=== PATIENT | female | born 1950 | race Caucasian/White ===

== ENCOUNTER → 2023-10-09 | Outpatient (CLI) | payer MEDICARE ==
--- NOTE | 2023-10-10 13:18 | CTL ---
EXAMINATION TYPE: CT Low Dose Lung DATE OF EXAM ORDERED: 10/09/2023 HISTORY: . Lung cancer screening CT DLP: 64.1 mGycm Automated exposure control for dose reduction was used. SCREENING VISIT: Initial COMPARISON: None TECHNIQUE: Low dose computed tomography scan was performed through the chest at 1 mm thick sections a nd reconstructed images in the coronal plane at [address] DIAGNOSTIC QUALITY: Satisfactory FINDINGS: LUNG NODULES: Present, detailed below: 1. There is a punctate 0.2 cm nodule peripheral right apex. Series 4 image 43. 2. There is a 0.3 cm nodule posterior left lung. Series 4 image 41. 3. There is a 0.3 cm nodule anterior right upper lobe. Series 4 image 47. 4. There is a faint 0.3 cm nodule peripheral left upper lung field. Series 4 image 51. 5. There is a faint 0.4 cm nodule posterior right upper lung field. Series 4 image 61. 6. Calcified granuloma lateral left lung base. Series 3 image 23. LUNGS: COPD: Severity: Mild. Some peribronchial thickening may be some chronic bronchitis present. Fibrosis: Severity: None Lymph nodes: None Other findings: None RIGHT PLEURAL SPACE: Effusion: None Calcification: None Thickening: None Pneumothorax: None LEFT PLEURAL SPACE: Effusion: None Calcification: None Thickening: None Pneumothorax: None HEART: Heart Size: Normal Coronary calcification: None Pericardial effusion: None OTHER FINDINGS: Upper abdomen: Normal Bony thorax: Normal Supraclavicular region: Normal Other: Ascending thoracic aorta at the main pulmonary artery is 3.4 cm. Main pulmonary artery the bif urcation is 2.2 cm. IMPRESSION: 1. Scattered small faint nodules. Follow up limited CT chest one year. FOLLOW UP CT CHEST RECOMMENDATION: Follow-up low-dose CT chest one year CT LUNG RAD: Lung-Rad 2 Benign Appearance or Behavior
== END | disposition home or self-care (01) ==
LOC: RADCTMAIN 15:15
PROVIDERS: ATTEND Family Medicine
DX: Z12.2 Encounter for screening for malignant neoplasm of respiratory organs (principal); R91.8 Other nonspecific abnormal finding of lung field; F17.210 Nicotine dependence, cigarettes, uncomplicated
CPT/HCPCS: 71271

== ENCOUNTER 2023-11-17 07:39 | Day surgery (SDC) | payer MEDICARE ==
[~2023-11-17 07:39] MED LIST: HYDROmorphone 0.5 MG/0.5 ML SYRINGE IVP PRN; MIDAZOLAM 2 MG/2 ML VIAL IV PRN
[2023-11-17] MEDS: IV FLUID CONTINUATION 1,000 ML IV ONE (08:22)
[2023-11-17] MEDS: ACETAMINOPHEN TAB 500 MG TAB PO PRN (08:45)
[2023-11-17] MEDS: SCOPOLAMINE 1 MG/72 HR PATCH TRANSDERM ONE (08:45)
[2023-11-17] MEDS: DEXAMETHASONE SOD PHOSPHATE 4 MG/ML 1 ML VIAL IV ONE (08:46)
[2023-11-17] MEDS: ONDANSETRON 4 MG/2 ML VIAL IVP ONE (08:48)
[2023-11-17] MEDS: LACTATED RINGERS 1,000 ML IV SCH (08:49)
[2023-11-17] MEDS: HEPARIN SODIUM,PORCINE 5,000 UNIT/ML 1 ML VIAL SQ STA (08:50)
[2023-11-17] MEDS: FAMOTIDINE 20 MG/2 ML VIAL IV STA (08:50)
[2023-11-17] MEDS: diphenhydrAMINE 50 MG/ML 1 ML VIAL IVP STA (08:50)
[2023-11-17] MEDS ORDERED: fentaNYL (PF) 50 MCG/ML 2 ML AMP ONE (08:57)
[2023-11-17] MEDS ORDERED: KETOROLAC 15 MG/ML 1 ML VIAL ONE (08:57)
[2023-11-17] MEDS ORDERED: ETOMIDATE 2 MG/ML 10 ML VIAL ONE (08:57)
[2023-11-17] MEDS ORDERED: LIDOCAINE 1% INJ 10MG/ML (20 ML MDV) ONE (08:57)
[2023-11-17] MEDS ORDERED: SUGAMMADEX SODIUM 200 MG/2 ML SDV IV ONE (08:57)
[2023-11-17] MEDS ORDERED: SUCCINYLCHOLINE CHLORIDE 200 MG/10 ML VIAL IV ONE (08:57)
[2023-11-17] MEDS ORDERED: MIDAZOLAM 2 MG/2 ML VIAL ONE (08:57)
[2023-11-17] MEDS ORDERED: ROCURONIUM 10 MG/ML (5 ML VIAL) IV ONE (08:57)
[2023-11-17] MEDS ORDERED: KETAMINE HCL IN 0.9 % NACL 50 MG/5 ML SYRINGE ONE (08:57)
[2023-11-17] MEDS: LIDOCAINE 1%-EPI 1:100,000 20 ML VIAL SQ ONE (09:27)
[2023-11-17 09:35] LABS: Basophils % (A) 0 %; Eosinophils # (A) 0.1 k/uL (0-0.7); Eosinophils % (A) 1 %; HCT 37.8 % (34.0-46.0); Lymphocytes # (A) 1.7 k/uL (1.0-4.8); Lymphocytes % (A) 27 %; MCH 30.6 pg (25.0-35.0); MCHC 31.7 g/dL (31.0-37.0); MCV 96.8 fL (80.0-100.0); Mean Platelet Volume 7.4; Monocytes # (A) 0.4 k/uL (0-1.0); Monocytes % (A) 6 %; Neutrophils % (A) 63 %; Platelet Count 384 k/uL (150-450); RDW 12.9 % (11.5-15.5); WBC 6.3 k/uL (3.8-10.6)
--- NOTE | 2023-11-17 09:43 | P.OP ---
Date of Procedure: 11/17/23 Preoperative Diagnosis: cholecystitis Postoperative Diagnosis: cholecystitis Cholelithiasis Procedure(s) Performed: laparoscopic cholecystectomy Anesthesia: ZION Surgeon: Benigno Mac Estimated Blood Loss (ml): 5 Pathology: other (gallbladder) Condition: stable Disposition: PACU Description of Procedure: The patient was placed on the operating table. The patient received a general endotracheal tube anesthesia. The patients abdomen was prepped and draped in the usual sterile fashion. Through an infraumbilical stab incision, the fascia of the anterior abdominal wall was grasped with a pair of Kochers and then the Veress needle was placed in the peritoneal cavity. Position of the Veress needle was confirmed with positive drop test. The abdomen was then insufflated. After adequate insufflation, the 10 mm trocar was placed in the peritoneal cavity. Following this the laparoscope was placed in the peritoneal cavity. The patient was placed in the head-up, right side up position and then a 5 mm trocar was placed in the right lateral and right subcostal position under direct visualization. A 8 mm trocar was placed in the epigastric position. The gallbladder was grasped in the fundus and infundibulum. Traction on the gallbladder was placed in the lateral and the cephalad positions. The triangle of Calot was visualized.. The cystic duct was bluntly dissected until the union of the cystic duct and common bile duct was seen. A critical view of safety was achieved. The cystic duct was then divided and sealed with the Harmonic scissors. A PDS Endoloop was then placed throughout the cystic duct stump. The cystic artery divided and sealed with the Harmonic scissors. The gallbladder was then removed from the liver bed using Harmonic scissors. The gallbladder was then extracted through the epigastric port site. Operative field was checked for any bleeding spots and Harmonic scissors was used to coagulate the liver bed. The abdomen was irrigated. The trocars were removed. The skin was closed using interrupted 3-0 Vicryl suture. Dermabond dressing were applied. The patient tolerated the procedure well.
[2023-11-17 09:59] VITALS: TEMP 96.9
[2023-11-17 10:08] VITALS: RESP 16
[2023-11-17] MEDS: IV FLUID CONTINUATION 800 ML IV ONE (10:43)
[2023-11-17 11:30] VITALS: BP 129/80; PULSE 90
== END 2023-11-17 11:57 | disposition home or self-care (01) ==
LOC: OR 07:39
PROVIDERS: ATTEND Surgery
DX: K80.10 Calculus of gallbladder with chronic cholecystitis without obstruction (principal); E78.5 Hyperlipidemia, unspecified; J44.9 Chronic obstructive pulmonary disease, unspecified; F17.200 Nicotine dependence, unspecified, uncomplicated; K21.9 Gastro-esophageal reflux disease without esophagitis; K58.9 Irritable bowel syndrome, unspecified; Z91.011 Allergy to milk products; Z91.013 Allergy to seafood; Z91.018 Allergy to other foods; Z88.2 Allergy status to sulfonamides; Z91.012 Allergy to eggs; Z88.5 Allergy status to narcotic agent; Z91.09 Other allergy status, other than to drugs and biological substances; Z79.899 Other long term (current) drug therapy
CPT/HCPCS: 88304; 85025; 47562; J2250; J0330; J1200; J1644; J1100; J0690; J2405; J2001; J3010; J3490; J1885

== ENCOUNTER 2023-12-07 22:36 | Emergency (ER) | payer MEDICARE ==
[2023-12-07 22:40] VITALS: RESP 18; TEMP 98.2
--- NOTE | 2023-12-07 23:02 | ED ---
General Adult HPI - General Chief complaint: Upper Respiratory Infection Stated complaint: Coughing/Blood Time Seen by Provider: 12/07/23 22:40 Source: patient Mode of arrival: wheelchair Limitations: no limitations - History of Present Illness Initial comments: Dictation was produced using [employer] dictation software. please excuse any grammatical, word or spelling errors. Chief Complaint: 73-year-old female with hemoptysis History of Present Illness: Patient 73-year-old female presents emergency department hemoptysis. States that chest pain has been coughing more than usual recently. This evening she was brushing her teeth. She is rinsing her mouth when she accidentally inhaled some water. She was coughing vigorously for approximately 10 to 15 minutes. During a coughing episode she started to notice some barry blood. Some small clots. Patient states that her symptoms resolved. She denies any shortness of breath. The ROS documented in this emergency department record has been reviewed and confirmed by me. Those systems with pertinent positive or negative responses have been documented in the HPI. All other systems are other negative and/or noncontributory. - Related Data Home Medications Medication Instructions Recorded Confirmed Albuterol Inhaler [Ventolin Hfa 2 puff INHALATION Q6H PRN 04/20/23 11/17/23 Inhaler] Cholecalciferol [Vitamin D3 (25 125 mcg PO WEEKLY 04/20/23 11/17/23 Mcg = 1000 Iu)] Desvenlafaxine Succinate [Pristiq] 100 mg PO DAILY 04/20/23 11/17/23 Fexofenadine HCl [Leanna Allergy] 180 mg PO DAILY 04/20/23 11/17/23 Fluticasone/Umeclidin/Vilanter 1 puff INHALATION DAILY 04/20/23 11/17/23 [Trelegy Ellipta 200-62.5-25] Gabapentin 800 mg PO QID 04/20/23 11/17/23 Omeprazole [PriLOSEC] 20 mg PO AC-BRKFST 04/20/23 11/17/23 Rimegepant Sulfate [Nurtec Odt] 75 mg PO DIRECTED PRN 04/20/23 11/17/23 valACYclovir HCL [Valtrex] 500 mg PO BID 04/20/23 11/17/23 Evolocumab [Repatha Sureclick] 140 mg SQ Q14D 05/10/24 06/11/24 Ibuprofen [Motrin Ib] 200 mg PO Q8H 11/16/23 11/17/23 Nystatin 100,000 Unit/ml Susp 10 ml PO QID PRN 11/16/23 11/17/23 [Mycostatin Oral Susp] Unk Magnesium 1 tab PO HS 11/16/23 11/17/23 Previous Rx's Medication Instructions Recorded Acetaminophen Tab [Tylenol] 650 mg PO Q6H #30 tab 11/17/23 Docusate [Colace] 100 mg PO BID #20 capsule 11/17/23 Ibuprofen [Motrin] 600 mg PO Q6HR PRN #40 tab 11/17/23 oxyCODONE HCL [OxyIR] 5 mg PO Q6H PRN 3 Days #10 tab 11/17/23 Allergies Allergy/AdvReac Type Severity Reaction Status Date / Time adhesive Allergy SKIN Verified 12/07/23 22:40 TEARS, ITCHING Milk Containing Products Allergy wheezing Verified 12/07/23 22:40 (Dairy) breathing issues nickel Allergy Itching Verified 12/07/23 22:40 shellfish derived [Shellfish] Allergy difficulty Verified 12/07/23 22:40 breathing Sulfa (Sulfonamide Allergy Anaphylaxis Verified 12/07/23 22:40 Antibiotics) any beans Allergy coughing, Uncoded 12/07/23 22:40 difficulty breathing. eggs Allergy cough, Uncoded 12/07/23 22:40 wheezing. steel markers Allergy severe Uncoded 12/07/23 22:40 itching NARCOTICS AdvReac Vomiting Uncoded 12/07/23 22:40 Review of Systems ROS Statement: Those systems with pertinent positive or pertinent negative responses have been documented in the HPI. ROS Other: All systems not noted in ROS Statement are negative. Past Medical History Past Medical History: COPD, GERD/Reflux, Hyperlipidemia, Musculoskeletal D isorder, Osteoarthritis (OA) Additional Past Medical History / Comment(s): MIGRAINES, BACK PAIN/MUSCLE SPASMS/SCOLIOSIS. 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 Past Anesthesia/Blood Transfusion Reactions: Family History of Problems w/ Anesthesia, Postoperative Nausea & Vomiting (PONV) Additional Past Anesthesia/Blood Transfusion Reaction / Comment(s): DAUGHTERS ARE DIFFICULT TO WAKE UP. Past Psychological History: Anxiety, Depression Smoking Status: Current every day smoker Past Alcohol Use History: None Reported Past Drug Use History: None Reported - Past Family History Daughter(s) Additional Family Medical History / Comment(s): Precancer of cervix. Mother Family Medical History: Congestive Heart Failure (CHF) General Exam - General Exam Comments Initial Comments: PHYSICAL EXAM: General Impression: Alert and oriented x3, not in acute distress HEENT: Normocephalic atraumatic, extra-ocular movements intact, pupils equal and reactive to light bilaterally, mucous membranes moist. Cardiovascular: Heart regular rate and rhythm Chest: Able to complete full sentences, no retractions, no tachypnea, diffuse mild lung end expiratory wheezing Abdomen: abdomen soft, non-tender, non-distended, no organomegaly Musculoskeletal: Pulses present and equal in all extremities, no peripheral edema Motor: no focal deficits noted Neurological: CN II-XII grossly intact, no focal motor or sensory deficits noted Skin: Intact with no visualized rashes Psych: Normal affect and mood Limitations: no limitations Course Vital Signs 12/07/23 22:37 Temperature 98.2 F Pulse Rate 103 H Respiratory 18 Rate Blood Pressure 129/78 O2 Sat by Pulse 98 Oximetry Medical Decision Making - Medical Decision Making Was pt. sent in by a medical professional or institution (KLAUDIA Holcomb, DIRECTOR OF COLLECTIONS AND ARCHIVES, urgent care, hospital, or residential...) When possible be specific @ -No Did you speak to anyone other than the patient for history (EMS, parent, family, police, friend...)? What history was obtained from this source @ -No Did you review nursing and triage notes (agree or disagree)? Why? @ -I reviewed and agree with nursing and triage notes Were old charts reviewed (outside hosp., previous admission, EMS record, old EKG, old radiological studies, urgent care reports/EKG's, residential records)? Report findings @ -No old charts were reviewed Differential Diagnosis (chest pain, altered mental status, abdominal pain women, abdominal pain men, vaginal bleeding, musculoskeletal, weakness, fever, dyspnea, syncope, headache, dizziness, GI bleed, back pain, seizure, CVA, palpatations, mental health)? @ -Pulmonary hemorrhage, pulmonary embolism, bronchial tear EKG interpreted by me (3pts min.). @ -None done X-rays interpreted by me (1pt min.). @ -None done CT interpreted by me (1pt min.). @ -CT angio of the chest shows no acute processes. U/S interpreted by me (1pt. min.). @ -None done What testing was considered but not performed or refused? (CT, X-rays, U/S, labs)? Why? @ -None What meds were considered but not given or refused? Why? @ -None Was smoking cessation discussed for >3mins.? @ -No Were there social determinants of health that impacted care today? How? (Homelessness, low income, unemployed, alcoholism, drug addiction, transportation, low edu. Level, literacy, decrease access to med. care, [facility], rehab)? @ -No Was there de-escalation of care discussed even if they declined (Discuss DNR or withdrawal of care, Hospice)? DNR status @ -No What co-morbidities impacted this encounter? (DM, HTN, Smoking, COPD, CAD, Cancer, CVA, ARF, Chemo, Hep., AIDS, mental health diagnosis, sleep apnea, morbid obesity)? @ -None Was patient admitted / discharged? Hospital course, mention meds given and route, prescriptions, significant lab abnormalities, going to OR and other pertinent info. @ -73-year-old female with hemoptysis. Vital signs stable. Laboratory evaluation is unremarkable. CT of the chest negative. Patient well-appearing denies any shortness of breath. Patient discharged. Clinical presentation likely secondary to bronchial tear. She is reevaluated bedside at 1:11 AM has not had any recurrent episodes of hemoptysis in the ER. Did you discuss the management of the patient with other professionals (professionals i.e. , PA, DIRECTOR OF COLLECTIONS AND ARCHIVES, lab, RT, psych nurse, director of social media marketing, deliverer merchandise, teacher, special officer automat, case liner)? Give summary @ -No Was critical care preformed (if so, how long)? @ -No Undiagnosed new problem with uncertain prognosis? @ -No Drug Therapy requiring intensive monitoring for toxicity (Heparin, Nitro, Insulin, Cardizem)? @ -No Were any procedures done? @ -No Diagnosis/symptom? Acute, or Chronic, or Acute on Chronic? Uncomplicated (without systemic symptoms) or Complicated (systemic symptoms)? @ -Hemoptysis, no high risk features Side effects of treatment? @ -No Exacerbation, Progression, or Severe Exacerbation? @ -No Poses a threat to life or bodily function? How? (Chest pain, [place], [place], pneumonia, PE, COPD, DKA, ARF, appy, cholecystitis, CVA, Diverticulitis, Homicidal, Suicidal, threat to staff... and all critical care pts) @ -No - Lab Data Result diagrams: 12/07/23 23:09 12/07/23 23:09 Lab Results 12/07/23 12/07/23 Range/Units 23:09 23:09 WBC 7.0 (3.8-10.6) k/uL RBC 3.94 (3.80-5.40) m/uL Hgb 12.0 (11.4-16.0) gm/dL Hct 38.8 (34.0-46.0) % MCV 98.4 (80.0-100.0) fL MCH 30.5 (25.0-35.0) pg MCHC 31.0 (31.0-37.0) g/dL RDW 13.3 (11.5-15.5) % Plt Count 440 (150-450) k/uL MPV 6.8 Neutrophils % 62 % Lymphocytes % 28 % Monocytes % 5 % Eosinophils % 3 % Basophils % 1 % Neutrophils # 4.4 (1.3-7.7) k/uL Lymphocytes # 1.9 (1.0-4.8) k/uL Monocytes # 0.3 (0-1.0) k/uL Eosinophils # 0.2 (0-0.7) k/uL Basophils # 0.0 (0-0.2) k/uL Hypochromasia Slight Sodium 132 L (137-145) mmol/L Potassium 4.6 (3.5-5.1) mmol/L Chloride 100 (98-107) mmol/L Carbon Dioxide 28 (22-30) mmol/L Anion Gap 4 mmol/L BUN 7 (7-17) mg/dL Creatinine 0.71 (0.52-1.04) mg/dL Est GFR (CKD-EPI)AfAm >90 (>60 ml/min/1.73 sqM) Est GFR (CKD-EPI)NonAf 86 (>60 ml/min/1.73 sqM) Glucose 95 (74-99) mg/dL Calcium 10.3 H (8.4-10.2) mg/dL Disposition Clinical Impression: Hemoptysis Disposition: HOME SELF-CARE Condition: Good Instructions (If sedation given, give patient instructions): Coughing Up Blood (Hemoptysis) (ED) Is patient prescribed a controlled substance at d/c from ED?: No Referrals: Ash Stokes MD [Primary Care Provider] - 1-2 days Time of Disposition: 01:12
[2023-12-07 23:19] LABS: Basophils % (A) 1 %; Eosinophils # (A) 0.2 k/uL (0-0.7); Eosinophils % (A) 3 %; HCT 38.8 % (34.0-46.0); Hypochromasia Slight; Lymphocytes # (A) 1.9 k/uL (1.0-4.8); Lymphocytes % (A) 28 %; MCH 30.5 pg (25.0-35.0); MCV 98.4 fL (80.0-100.0); Mean Platelet Volume 6.8; Monocytes # (A) 0.3 k/uL (0-1.0); Monocytes % (A) 5 %; Neutrophils # (A) 4.4 k/uL (1.3-7.7); Neutrophils % (A) 62 %; Platelet Count 440 k/uL (150-450); RBC 3.94 m/uL (3.80-5.40); RDW 13.3 % (11.5-15.5)
[2023-12-07 23:34] LABS: African American GFR (CKD) >90 (>60 ml/min/1.73 sqM); Anion Gap 4 mmol/L; Blood Urea Nitrogen 7 mg/dL (7-17); Calcium 10.3 mg/dL (8.4-10.2); Carbon Dioxide 28 mmol/L (22-30); Chloride 100 mmol/L (98-107); Glucose 95 mg/dL (74-99); Non-African American GFR(CKD) 86 (>60 ml/min/1.73 sqM); Potassium 4.6 mmol/L (3.5-5.1); Sodium 132 mmol/L (137-145)
--- NOTE | 2023-12-08 00:40 | CT ---
EXAMINATION TYPE: CT angio chest DATE OF EXAM: 12/08/2023 COMPARISON: NONE HISTORY: sob chest pain CT DLP: 243 mGycm. Automated Exposure Control for Dose Reduction was Utilized. CONTRAST: CTA scan of the thorax is performed with IV Contrast, patient injected with 75 mL of Isovue 370, pulm onary embolism protocol. MIP Images are created on CT scanner and reviewed. FINDINGS: LUNGS: Overall mosaic attenuation. No suspicious focal consolidation. No pleural effusion or pneumoth orax seen bilaterally. MEDIASTINUM: Suboptimal study with most dense contrast in the SVC and aorta. No thoracic aortic aneur ysm or dissection. There is four vessel origin from aortic arch which is normal variant. No central s addle pulmonary embolism. Cannot entirely exclude peripheral segmental and subsegmental PE on this ex am with less than ideal opacification of the pulmonary arteries. Trace pericardial effusion. No cardi omegaly. OTHER: S-shaped scoliosis. IMPRESSION: Suboptimal study without central acute pulmonary embolism. Mosaic attenuation suggest mil d edema. No suspicious focal consolidation.
[2023-12-08 01:23] VITALS: BP 129/82; PULSE 84
== END 2023-12-08 01:23 | disposition home or self-care (01) ==
LOC: EC 22:36
DX: R04.2 Hemoptysis (principal); F17.200 Nicotine dependence, unspecified, uncomplicated; Z88.1 Allergy status to other antibiotic agents; Z88.2 Allergy status to sulfonamides; Z88.5 Allergy status to narcotic agent; Z91.012 Allergy to eggs; Z91.013 Allergy to seafood; Z91.018 Allergy to other foods; Z90.49 Acquired absence of other specified parts of digestive tract
CPT/HCPCS: 36415; 71275; 80048; 85025; 99284